=== PATIENT | female | born 1980 | race Caucasian/White ===

== ENCOUNTER 2020-06-16 12:54 | Emergency (ER) | payer BC, SELFPAY ==
[~2020-06-16] VITALS: Ht 152.4 cm; Wt 56.7 kg
[2020-06-16 13:30] VITALS: BP_SYST 119
[2020-06-16 15:50] VITALS: BP_SYST 119
== END 2020-06-16 15:50 | disposition home or self-care (01) ==
LOC: SED 12:54
DX: Z20.828 Contact with and (suspected) exposure to other viral communicable diseases (principal)
CPT/HCPCS: 36415; 99283